=== PATIENT | female | born 1980 | race Caucasian/White ===

== ENCOUNTER → 2024-10-06 | Outpatient (CLI) | payer OTHER ==
[2024-10-06 15:17] LABS: BASO # 0.03 K/mm3 (0.02-0.10); EOS # 0.14 K/mm3 (0.04-0.40); EOS % 1.9 % (1.0-5.0); HEMATOCRIT 43.8 % (37.0-47.0); HEMOGLOBIN 14.5 g/dL (12.5-16.0); LYMPH# 1.58 K/mm3 (1.50-4.00); MEAN CELL VOLUME 93 fl (78-100); MEAN CORPUSCULAR HEMOGLOBIN 31 pg (27-31); MEAN CORPUSCULAR HGB CONC 33 g/dL (33-37); MEAN PLATELET VOLUME 10.1 fl (7.4-10.4); MONO # 0.55 K/mm3 (0.20-0.80); NEU # 5.09 K/mm3 (1.40-6.50); PLATELET COUNT 192 K/mm3 (130-400); RED BLOOD COUNT 4.69 M/mm3 (4.10-5.30); RED CELL DISTRIBUTION WIDTH 11.9 % (11.5-14.5); WHITE BLOOD COUNT 7.4 K/mm3 (4.8-10.8)
[2024-10-06 15:59] LABS: ALBUMIN 4.1 g/dL (3.5-5.0)
[2024-10-06 16:01] LABS: TOTAL PROTEIN 7.5 g/dL (6.4-8.3)
[2024-10-06 16:03] LABS: TOTAL BILIRUBIN 0.5 mg/dL (0.2-1.2)
[2024-10-07 15:31] LABS: FOLLICLE STIMULATING HORMONE 2.4 mIU/mL (()); LUTENIZING HORMONE 2.8 mIU/mL (()); PROGESTERONE 5.6 ng/mL (())
== END ==
LOC: LAB 15:04
PROVIDERS: Family Medicine
DX: E78.5 Hyperlipidemia, unspecified (principal); N91.1 Secondary amenorrhea; I10 Essential (primary) hypertension; E55.9 Vitamin D deficiency, unspecified

== ENCOUNTER → 2024-10-22 | Outpatient (CLI) | payer OTHER | LOC: AMSURD 12:39 | DX: R00.2 Palpitations (principal) ==